=== PATIENT | female | born 2000 | race African-American/Black ===

== ENCOUNTER 2020-07-28 23:04 | Emergency (ER) | payer BC ==
[2020-07-28 23:11] VITALS: BP 119/74; PULSE 86; RESP 18; TEMP 98.2
[2020-07-28] MEDS ORDERED: TOPICAL SKIN ADHESIVE 1 EACH AMP TOPICAL ONE (23:23)
[2020-07-28] MEDS ORDERED: DIPH,PERTUS(ACELL)TETVAC-LF 0.5 ML VIAL IM ONE (23:23)
[2020-07-28] MEDS ORDERED: LIDOCAINE/EPINEPHR/TETRACAINE 5 ML BOTTLE TOPICAL ONE (23:28)
--- NOTE | 2020-07-28 23:30 | ED ---
Wound/Laceration HPI - General Chief Complaint: Wound/Laceration Stated Complaint: Finger Lac Time Seen by Provider: 07/28/20 23:12 Source: patient Mode of arrival: ambulatory Limitations: no limitations - History of Present Illness Initial Comments: 19 year-old female patient presents to the emergency department for evaluation of injury to the right ring finger. Patient states that she cut on the back of the stove around 8 PM. States they have been unable to get it to stop bleeding. She denies any significant pain, numbness, or tingling to the area. Denies any bony injury or difficulty with range of motion. She denies any other injuries or concerns. Both her and parent are unsure when last tetanus vaccine was given. - Related Data Allergies Allergy/AdvReac Type Severity Reaction Status Date / Time oxcarbazepine Allergy Unknown Verified 07/28/20 23:11 [From Trileptal] Review of Systems ROS Statement: Those systems with pertinent positive or pertinent negative responses have been documented in the HPI. ROS Other: All systems not noted in ROS Statement are negative. Past Medical History Past Medical History: Seizure Disorder Additional Past Medical History / Comment(s): gladys History of Any Multi-Drug Resistant Organisms: None Reported Past Surgical History: Appendectomy, Tonsillectomy Smoking Status: Never smoker Past Alcohol Use History: None Reported Past Drug Use History: None Reported General Exam Limitations: no limitations General appearance: alert, in no apparent distress, other (Physical well- developed, well-nourished adult female patient in no acute distress. Vital signs upon presentation are temperature 98.2F, pulse 86, respirations 18, blood pressure 119/74, pulse ox 99% on room air.) Respiratory exam: Present: normal lung sounds bilaterally. Absent: respiratory distress, wheezes, rales, rhonchi, stridor Cardiovascular Exam: Present: regular rate, normal rhythm, normal heart sounds. Absent: systolic murmur, diastolic murmur, rubs, gallop, clicks Extremities exam: Present: full ROM, normal capillary refill, other (There is 1cm flap laceration to the tip of the right ring finger. Mild active bleeding noted. Full ROM intact. Radial pulse 2+). Absent: normal inspection, tenderness, pedal edema, joint swelling, calf tenderness Course Vital Signs 07/28/20 23:06 Temperature 98.2 F Pulse Rate 86 Respiratory 18 Rate Blood Pressure 119/74 O2 Sat by Pulse 99 Oximetry Procedures - Laceration Laceration #1 Consent Obtained: verbal consent Indication: laceration Site: hand (Right ring finger) Size (cm): 1 Description: flap Depth: simple, single layer Anesthetic Used: lidocaine 1%, with epi Anesthesia Technique: local infiltration Amount (mls): 0 (0.5ml) Pre-repair: irrigated extensively Type of Sutures: nylon Size of Sutures: 5-0 Number of Sutures: 3 Technique: simple, interrupted Patient Tolerated Procedure: well, no complications Medical Decision Making - Medical Decision Making 19-year-old female patient presented to the emergency department today for evaluation of laceration to the tip of the right ring finger. Physical examination did reveal 1 cm flap laceration to the distal tip of the right ring finger. Actively bleeding. Pressure was held, zap solution applied. Bleeding continued. Did use a very small amount of lidocaine with epi which did slow bleeding but sutures had to be placed. Patient tolerated this well. She'll be discharged with instructions regarding wound care and suture removal. Return parameters were discussed in detail. Parent and patient verbalize understanding and agree with this plan. Disposition Clinical Impression: Laceration of right ring finger Disposition: HOME SELF-CARE Condition: Good Instructions (If sedation given, give patient instructions): Care For Your Stitches (ED), Finger Laceration (ED) Additional Instructions: Keep the wound clean and dry. Cleanse twice daily with warm water and antibacterial soap. Avoid submerging finger in water. Follow-up with the primary care physician for recheck in 1-2 days. Return in 7 days to have the stitches removed. Return for any other new, worsening, or concerning symptoms. Is patient prescribed a controlled substance at d/c from ED?: No Referrals: Flako Bowden MD [Primary Care Provider] - 1-2 days Time of Disposition: 00:19
[2020-07-29] MEDS ORDERED: LIDOCAINE 1%-EPI 1:100,000 20 ML VIAL SQ STA (00:01)
== END 2020-07-29 00:24 | disposition home or self-care (01) ==
LOC: EC 23:04
DX: S61.214A Laceration without foreign body of right ring finger without damage to nail, initial encounter (principal); Z23 Encounter for immunization; Z88.8 Allergy status to other drugs, medicaments and biological substances; W26.8XXA Contact with other sharp object(s), not elsewhere classified, initial encounter
CPT/HCPCS: 12001; 90471; 90715; 99282

== ENCOUNTER → 2024-07-02 | Outpatient (CLI) | payer BC ==
[2024-07-02 13:58] VITALS: BP 125/83; PULSE 92; RESP 16; TEMP 98.2
--- NOTE | 2024-07-02 14:59 | P.SLEEP ---
History of Present Illness H&P Date: 07/02/24 This is a 23-year-old female patient, accompanied today by her mother regarding her obstructive sleep apnea. The patient was diagnosed having obstructive sleep apnea through [facility] at the age of 7. At that time, the patient was given a tonsillectomy and a nasal lobectomy. Subsequently, she continued to have symptoms of SANJEEV and she was given CPAP therapy at the age of 8/9 years old. The patient has been utilizing CPAP therapy since then. He wanted to come and establish her care with me as the patient does not have any CPAP supplies and she has not been able to use her CPAP machine for the past 1 year. This is the second machine that she is going through and this is a ResMed 10 which is set in APAP mode pressures of 5/15 cm of water. The patient is eager to go back on CPAP therapy as she is feeling fatigued and tired during the day. She has history of snoring. She goes to bed at around 10:30 PM and she gets out of bed at 6 AM in the morning. On weekends, she gets out of bed at around 8 AM. She has been noted to have apneas during sleep by family members. No nighttime heartburn or chest pain. No palpitations. No sleepwalking. No sleep talking. No guarding. Feels fatigued during the day and her current Delmar score is at 7. She is currently working on her mother and taking care of other individuals/medical care. She has history of seizure disorder maintained on Keppra and she has been seizure-free and she is currently driving. No episodes of falling asleep while driving her car. No substance abuse. No alcoholism. No smoking. No head trauma. No anxiety. No depression. No grinding. The patient does not take any naps during the day. She sleeps on her side. She is a nose breather and she was utilizing a DreamWear nasal mask medium size with a medium size headgear. The patient's weight has been essentially stable over the past 5 years. On a separate note, the patient is on modafinil 100 mg twice a day for daytime stimulation. This was given to her by her previous sleep specialist for residual symptoms of fatigue and sleepiness despite being on CPAP therapy. Review of Systems Constitutional: Reports daytime sleepiness, Reports fatigue Eyes: denies as per HPI, denies blurred vision, denies bulging eye, denies decreased vision, denies diplopia, denies discharge, denies dry eye, denies irritation, denies itching, denies pain, denies photophobia, denies loss of peripheral vision, denies loss of vision, denies tunnel vision/blind spots Ears: deny: decreased hearing, ear discharge, earache, tinnitus Ears, nose, mouth and throat: Reports as per HPI Breasts: absent: as per HPI, change in shape, gynecomastia, masses, nipple discharge, pain, skin changes, swelling Cardiovascular: Reports as per HPI Respiratory: Reports sleep apnea Gastrointestinal: Reports as per HPI Genitourinary: Reports as per HPI Menstruation: Reports as per HPI Musculoskeletal: Reports as per HPI Musculoskeletal: absent: ankle pain, ankle stiffness, ankle swelling, as per HPI, elbow pain, elbow stiffness, elbow swelling, foot pain, foot stiffness, foot swelling, hand pain, hand stiffness, hand swelling, hip pain, hip stiffn ess, hip swelling, knee pain, knee stiffness, knee swelling, shoulder pain, shoulder stiffness, shoulder swelling, wrist pain, wrist stiffness, wrist swelling Integumentary: Reports as per HPI Neurological: Reports as per HPI Psychiatric: Reports as per HPI Endocrine: Reports as per HPI, Reports fatigue Hematologic/Lymphatic: Reports as per HPI Allergic/Immunologic: Reports as per HPI Past Medical History Past Medical History: Seizure Disorder, Sleep Apnea/CPAP/BIPAP Additional Past Medical History / Comment(s): sanjeev, hypersomnia History of Any Multi-Drug Resistant Organisms: None Reported Past Surgical History: Appendectomy, Tonsillectomy Past Anesthesia/Blood Transfusion Reactions: No Reported Reaction Past Psychological History: No Psychological Hx Reported Smoking Status: Never smoker Past Alcohol Use History: None Reported Past Drug Use History: None Reported - Past Family History Mother Family Medical History: Asthma, Hypertension, Osteoarthritis (OA), Pneumonia Additional Family Medical History / Comment(s): headaches, Snoring Father Family Medical History: Cancer Additional Family Medical History / Comment(s): snoring, mental illness Sister(s) Family Medical History: Sleep Apnea/CPAP/BIPAP Additional Family Medical History / Comment(s): snoring, mental illness Medications and Allergies Home Medications Medication Instructions Recorded Confirmed Type Fluticasone Nasal [place] [Flonase See Rx Instructions .ROUTE .COMPLEX 07/02/24 07/02/24 History Nasal [place]] Folic Acid See Rx Instructions .ROUTE .COMPLEX 07/02/24 07/02/24 History levETIRAcetam [Keppra] 250 mg PO DAILY 07/02/24 07/02/24 History modafiniL [Provigil] 100 mg PO BID 07/02/24 07/02/24 History Allergies Allergy/AdvReac Type Severity Reaction Status Date / Time oxcarbazepine Allergy Unknown Verified 07/28/20 23:11 [From Trileptal] Physical Exam Vitals: Vital Signs Temp Pulse Resp BP Pulse Ox 07/02/24 13:57 98.2 F 92 16 125/83 97 Intake and Output 07/01/24 07/02/24 07/02/24 22:59 06:59 14:59 Other: Weight 92.079 kg The patient appeared well nourished and normally developed. Vital signs as documented. Head exam is unremarkable. No scleral icterus or corneal arcus noted. Neck is without jugular venous distension, thyromegaly, or carotid bruits. Carotid upstrokes are brisk bilaterally. Mallampati class IV with crowding of posterior pharynx. Lungs are clear to auscultation and percussion. Cardiac exam reveals the PMI to be normally sized and situated. Rhythm is regular. First and second heart sounds normal. No murmurs, rubs or gallops. Abdominal exam reveals normal bowel sounds, no masses, no organomegaly and no aortic enlargement. Extremities are nonedematous and both femoral and pedal pulses are normal. Examination of the skin revealed no evidence of significant rashes, suspicious appearing nevi or other concerning lesions. Neurologically, the patient is awake and alert and the patient does not have any focal neurological deficit. Cranial nerves are essentially intact. Assessment and Plan Plan: Obstructive sleep apnea, symptomatic as the patient is currently off treatment. Obesity with a BMI of 35.9 Chronic hypersomnia/fatigue with an Delmar score of 7 History of seizure disorders Chronic allergic rhinitis Plan This is a case of pediatric obstructive sleep apnea diagnosed in a very young age and the patient is status post tonsillectomy and adenoidectomy The patient has been a longtime CPAP user and currently she is off treatment as the patient has no supplies The patient has a ResMed 10 CPAP unit which is set at APAP mode pressures of 5/15 cm of water with a DreamWear nasal mask. Her machine is functional I suggested starting back on the machine and treatment and I offered the patient a dream wisp nasal mask to start her treatment as soon as possible. Same time, I sent a prescription to obtain supplies on her DreamWear nasal mask medium size in addition to the appropriate tubing and filters and humidification chamber. Maintain regular sleep schedule Maintain good sleep hygiene measures May ultimately need a home sleep study to reestablish diagnosis and severity once the patient is ready to update her CPAP this. Continue to follow Sleep Note - Sleep Data ESS Total: 7 - Sleep Note Sleep Note: Temperature: 98.2 F Pulse Rate: 92 Respiratory Rate: 16 Blood Pressure: 125/83 SpO2: 97 Height: 5 ft 3 in Weight: 92.079 kg BMI: Neck Circumference: 14.5
== END ==
LOC: 3 N SLEEP 13:16
PROVIDERS: ATTEND Internal Medicine Critical Care Medicine
DX: G47.33 Obstructive sleep apnea (adult) (pediatric) (principal); E66.9 Obesity, unspecified; Z68.35 Body mass index [BMI] 35.0-35.9, adult; J30.9 Allergic rhinitis, unspecified; Z98.890 Other specified postprocedural states; Z88.8 Allergy status to other drugs, medicaments and biological substances; Z86.69 Personal history of other diseases of the nervous system and sense organs
CPT/HCPCS: 99202